=== PATIENT | male | born 1965 | race Caucasian/White ===

== ENCOUNTER 2018-03-18 21:46 | Emergency (ER) | payer OTHER | END 2018-03-18 22:10 | disposition home or self-care (01) | LOC: MADERS 21:46 | DX: R56.9 Unspecified convulsions (principal); F17.210 Nicotine dependence, cigarettes, uncomplicated; F41.9 Anxiety disorder, unspecified; Z79.899 Other long term (current) drug therapy | CPT/HCPCS: 99283 ==

== ENCOUNTER 2018-11-01 15:03 | Emergency (ER) | payer SELFPAY ==
[2018-11-01] MEDS ORDERED: predniSONE 20 MG TAB ONE (15:43)
== END 2018-11-01 15:50 | disposition home or self-care (01) ==
LOC: MADERS 15:03
DX: T63.441A Toxic effect of venom of bees, accidental (unintentional), initial encounter (principal); F17.210 Nicotine dependence, cigarettes, uncomplicated
CPT/HCPCS: 99283; J7512

== ENCOUNTER 2019-12-14 12:13 | Emergency (ER) | payer SELFPAY ==
[2019-12-14] MEDS ORDERED: Cephalexin 500 MG CAP ONE (13:03)
[2019-12-14] MEDS ORDERED: Dexamethasone 4 MG TAB ONE (13:03)
== END 2019-12-14 13:08 | disposition home or self-care (01) ==
LOC: MADERS 12:13
DX: T63.461A Toxic effect of venom of wasps, accidental (unintentional), initial encounter (principal); L03.114 Cellulitis of left upper limb; F17.210 Nicotine dependence, cigarettes, uncomplicated
CPT/HCPCS: 99282; J8540

== ENCOUNTER 2020-02-02 21:46 | Emergency (ER) | payer SELFPAY ==
[2020-02-02 22:10] LABS: #Basophils 0.1 thou/uL (0.0-0.2); #Eosinphils 0.3 thou/uL (0.0-0.7); #Lymphocytes 1.8 thou/uL (1.20-3.40); #Monocytes 0.5 thou/uL (0.11-0.59); #Neutrophils 4.3 thou/uL (1.40-6.50); %Basophils 1.8 % (0.0-1.0); %Eosinophils 4.4 % (0.0-10.0); %Lymphocytes 25.6 % (21.0-51.0); %Monocytes 7.2 % (0.0-10.0); %Neutrophils 61.1 % (42.0-75.0); Hemoglobin 14.9 g/dL (14.0-18.0); Mean Corpuscular HGB CONC 34.8 g/dL (32.0-36.0); Mean Corpuscular Hemoglobin 32.5 pg (27.0-31.0); Mean Corpuscular Volume 93.4 fL (78.0-98.0); Mean Platelet Volume 7.4 fL (7.4-10.4); Platelet Count 251 thou/uL (130-400); RBC Distribution Width 11.4 % (11.5-14.5); Red Blood Cell (RBC) Count 4.58 mill/uL (4.70-6.10)
[2020-02-02 22:34] LABS: ALT (SGPT) 60 U/L (8-55); AST (SGOT) 30 U/L (5-34); Albumin 3.9 g/dL (3.5-5.0); Alkaline Phosphatase 71 U/L (40-110); Anion Gap 16 mmol/L (10-20); BUN (Urea Nitrogen) 13 mg/dL (8.4-25.7); Bilirubin, Total 0.6 mg/dL (0.2-1.2); Calc. Creatinine Clearance 0 mL/min (70-130); Calcium 8.4 mg/dL (7.8-10.44); Carbon Dioxide 20 mmol/L (22-29); Chloride 102 mmol/L (98-107); Estimated GFR-MDRD Greater than 90; Globulin 2.7 g/dL (2.4-3.5); Glucose 92 mg/dL (70-105); Potassium 3.4 mmol/L (3.5-5.1); Protein, Total 6.6 g/dL (6.0-8.3); Sodium 135 mmol/L (136-145)
[2020-02-02 22:42] LABS: Amphetamine Not Detected (NotDetected); Barbiturates Screen Not Detected (NotDetected); Benzodiazepine Screen Not Detected (NotDetected); Cocaine Metabolite Screen Not Detected (NotDetected); Methadone Not Detected (NotDetected); Methamphetamine Not Detected (NotDetected); Opiate Screen Not Detected (NotDetected); Oxycodone Screen Not Detected (NotDetected); Phencyclidine (PCP) Not Detected (NotDetected); THC/Cannabinoid Screen Detected (NotDetected); Tricyclic Screen Not Detected (NotDetected)
[2020-02-02 22:43] LABS: Medtox Control Line Valid? VALID (VALID)
[2020-02-02] MEDS ORDERED: Potassium Chloride 20 MEQ TAB ONE (22:50)
== END 2020-02-02 22:59 | disposition home or self-care (01) ==
LOC: MADERS 21:46
DX: R56.9 Unspecified convulsions (principal); F10.10 Alcohol abuse, uncomplicated; E87.6 Hypokalemia; F12.10 Cannabis abuse, uncomplicated; G89.29 Other chronic pain; M19.90 Unspecified osteoarthritis, unspecified site; Z86.73 Personal history of transient ischemic attack (TIA), and cerebral infarction without residual deficits; F17.290 Nicotine dependence, other tobacco product, uncomplicated
CPT/HCPCS: 36415; 51701; 80053; 80306; 83605; 85025

== ENCOUNTER 2022-06-13 11:02 | Emergency (ER) | payer SELFPAY ==
[~2022-06-13 11:02] MED LIST: Iopamidol 370 76% 100 ML VIAL ONE
[2022-06-13] MEDS ORDERED: Morphine 4 MG/ML VIAL ONE ×2 (11:26→13:18)
[2022-06-13] MEDS ORDERED: Dicyclomine 20 MG/2 ML VIAL ONE (11:27)
[2022-06-13] MEDS ORDERED: Sodium Chloride 0.9% 1,000 ML ONE (11:27)
[2022-06-13] MEDS ORDERED: Ondansetron PF 4 MG/2 ML Vial ONE (11:27)
[2022-06-13 12:00] LABS: #Basophils 0.1 thou/uL (0.0-0.2); #Eosinphils 0.5 thou/uL (0.0-0.7); #Lymphocytes 1.2 thou/uL (1.20-3.40); #Monocytes 0.5 thou/uL (0.11-0.59); #Neutrophils 5.4 thou/uL (1.40-6.50); %Basophils 1.9 % (0.0-1.0); %Eosinophils 6.8 % (0.0-10.0); %Lymphocytes 15.2 % (21.0-51.0); %Monocytes 6.1 % (0.0-10.0); %Neutrophils 70.1 % (42.0-75.0); Hemoglobin 15.3 g/dL (14.0-18.0); Mean Corpuscular HGB CONC 34.7 g/dL (32.0-36.0); Mean Corpuscular Hemoglobin 32.5 pg (27.0-31.0); Mean Corpuscular Volume 93.6 fl (78.0-98.0); Mean Platelet Volume 6.9 fL (7.4-10.4); Platelet Count 257 10x3/uL (130-400); Red Blood Cell (RBC) Count 4.73 mill/uL (4.70-6.10); White Blood Cell (WBC) Count 7.7 10x3/uL (4.8-10.8)
[2022-06-13 12:15] LABS: ALT (SGPT) 61 U/L (8-55); AST (SGOT) 35 U/L (5-34); Alkaline Phosphatase 71 U/L (40-110); Anion Gap 12 mmol/L (10-20); BUN (Urea Nitrogen) 12 mg/dL (8.4-25.7); Bilirubin, Total 0.7 mg/dL (0.2-1.2); Calc. Creatinine Clearance 0 mL/min (70-130); Calcium 8.9 mg/dL (7.8-10.44); Carbon Dioxide 21 mmol/L (22-29); Chloride 105 mmol/L (98-107); Estimated GFR 102; Globulin 2.7 g/dL (2.4-3.5); Glucose 107 mg/dL (70-105); Lipase 56 U/L (8-78); Potassium 4.3 mmol/L (3.5-5.1); Protein, Total 6.7 g/dL (6.0-8.3); Sodium 134 mmol/L (136-145)
[2022-06-13 13:21] LABS: Bilirubin Negative (Negative); Blood, Urine Negative (Negative); Clarity Clear (Clear); Glucose, Urine (Dipstick) Negative (Negative); Ketone, Urine Negative (Negative); Leukocyte Negative (Negative); Nitrite Negative (Negative); Protein, Urine (Dipstick) Negative (Neg-Trace); Urobilinogen 0.2 mg/dL (Less than 2); pH, Urine 5.5 (5.0-9.0)
[2022-06-13] MEDS ORDERED: cefTRIAXone\\ROCEPHIN 2 GM VIAL ONE (13:33)
[2022-06-13] MEDS ORDERED: Ketorolac Tromethamine 30 MG/ML VIAL ONE (13:33)
[2022-06-13] MEDS ORDERED: Lidocaine 1% (PF) 30 ML VIAL ONE (13:34)
== END 2022-06-13 14:25 | disposition home or self-care (01) ==
LOC: MADERS 11:02
DX: K52.9 Noninfective gastroenteritis and colitis, unspecified (principal); G40.409 Other generalized epilepsy and epileptic syndromes, not intractable, without status epilepticus; F17.210 Nicotine dependence, cigarettes, uncomplicated; M41.9 Scoliosis, unspecified; Z86.73 Personal history of transient ischemic attack (TIA), and cerebral infarction without residual deficits; Z79.899 Other long term (current) drug therapy
CPT/HCPCS: 36415; 74177; 80053; 81003; 83690; 85025; 96361; 96365; 96372; 96375; 96376; J0696; J1885; J2001; J2270; J2405; J7050; Q9967

== ENCOUNTER 2022-12-15 11:28 | Emergency (ER) | payer SELFPAY ==
[2022-12-15] MEDS ORDERED: Ondansetron PF 4 MG/2 ML Vial ONE (12:19)
[2022-12-15] MEDS ORDERED: Morphine 4 MG/ML VIAL ONE ×2 (12:19→15:55)
[2022-12-15] MEDS ORDERED: Sodium Chloride 0.9% 1,000 ML ONE (12:19)
[2022-12-15 12:22] LABS: #Basophils 0.1 thou/uL (0.0-0.2); #Eosinphils 0.3 thou/uL (0.0-0.7); #Lymphocytes 1.3 thou/uL (1.20-3.40); #Monocytes 0.4 thou/uL (0.11-0.59); %Basophils 1.8 % (0.0-1.0); %Eosinophils 7.1 % (0.0-10.0); %Lymphocytes 32.5 % (21.0-51.0); %Monocytes 9.4 % (0.0-10.0); %Neutrophils 49.2 % (42.0-75.0); Hematocrit 40.5 % (42.0-52.0); Hemoglobin 13.9 g/dL (14.0-18.0); Mean Corpuscular HGB CONC 34.3 g/dL (32.0-36.0); Mean Corpuscular Hemoglobin 32.9 pg (27.0-31.0); Mean Platelet Volume 8.2 fL (7.4-10.4); Platelet Count 263 10x3/uL (130-400); RBC Distribution Width 11.3 % (11.5-14.5); Red Blood Cell (RBC) Count 4.22 mill/uL (4.70-6.10); White Blood Cell (WBC) Count 4.1 10x3/uL (4.8-10.8)
[2022-12-15 12:40] LABS: ALT (SGPT) 102 U/L (8-55); AST (SGOT) 58 U/L (5-34); Albumin 4.3 g/dL (3.5-5.0); Alkaline Phosphatase 80 U/L (40-110); Anion Gap 14 mmol/L (10-20); BUN (Urea Nitrogen) 15 mg/dL (8.4-25.7); Bilirubin, Total 0.6 mg/dL (0.2-1.2); Calc. Creatinine Clearance 0 mL/min (70-130); Calcium 9.8 mg/dL (7.8-10.44); Carbon Dioxide 24 mmol/L (22-29); Chloride 103 mmol/L (98-107); Estimated GFR 86; Glucose 102 mg/dL (70-105); Lipase 57 U/L (8-78); Potassium 5.3 mmol/L (3.5-5.1); Protein, Total 7.3 g/dL (6.0-8.3); Sodium 136 mmol/L (136-145)
[2022-12-15] MEDS ORDERED: Dicyclomine 20 MG/2 ML VIAL ONE (13:58)
[2022-12-15] MEDS ORDERED: Pantoprazole 40 MG VIAL ONE (16:44)
== END 2022-12-15 18:28 | disposition short-term general hospital (02) ==
LOC: EDBD → MADERS 11:28
DX: R10.84 Generalized abdominal pain (principal); R74.01 Elevation of levels of liver transaminase levels; G40.409 Other generalized epilepsy and epileptic syndromes, not intractable, without status epilepticus; F17.210 Nicotine dependence, cigarettes, uncomplicated; Z79.899 Other long term (current) drug therapy
CPT/HCPCS: 74177; 80053; 83605; 83690; 83735; 85025; 93005; 96361; 96372; 96374; 96375; 96376; C9113; J2270; J2405; J7050; Q9967

== ENCOUNTER 2024-03-20 12:46 | Emergency (ER) | payer OTHER ==
[2024-03-20 14:43] LABS: #Basophils 0.1 thou/uL (0.0-0.2); #Eosinophils 0.3 thou/uL (0.0-0.7); #Lymphocytes 1.3 thou/uL (1.20-3.40); #Monocytes 0.6 thou/uL (0.11-0.59); #Neutrophils 2.8 thou/uL (1.40-6.50); %Basophils 2.5 % (0.0-1.0); %Eosinophils 5.1 % (0.0-10.0); %Lymphocytes 25.3 % (21.0-51.0); %Monocytes 12.6 % (0.0-10.0); %Neutrophils 54.4 % (42.0-75.0); Hemoglobin 14.4 g/dL (14.0-18.0); Mean Corpuscular HGB CONC 32.6 g/dL (32.0-36.0); Mean Corpuscular Hemoglobin 31.7 pg (27.0-31.0); Mean Corpuscular Volume 97.1 fl (78.0-98.0); Mean Platelet Volume 7.6 fL (7.4-10.4); Platelet Count 277 10x3/uL (130-400); RBC Distribution Width 11.2 % (11.5-14.5); Red Blood Cell (RBC) Count 4.53 mill/uL (4.70-6.10); White Blood Cell (WBC) Count 5.1 10x3/uL (4.8-10.8)
[2024-03-20 14:51] LABS: ALT (SGPT) 50 U/L (8-55); AST (SGOT) 28 U/L (5-34); Albumin 4.4 g/dL (3.4-4.8); Alkaline Phosphatase 81 U/L (40-110); Anion Gap 20 mmol/L (10-20); BUN (Urea Nitrogen) 39 mg/dL (8.4-25.7); Bilirubin, Total 0.6 mg/dL (0.2-1.2); Calc. Creatinine Clearance 0 mL/min (70-130); Carbon Dioxide 20 mmol/L (23-31); Chloride 100 mmol/L (98-107); Estimated GFR 36; Globulin 3.6 g/dL (2.4-3.5); Glucose 94 mg/dL (80-115); Potassium 4.8 mmol/L (3.5-5.1); Sodium 135 mmol/L (136-145)
[2024-03-20 14:52] LABS: Troponin I Less than 0.010 ng/mL (< 0.028)
== END 2024-03-20 15:51 | disposition home or self-care (01) ==
LOC: MADERS 12:46
DX: R42 Dizziness and giddiness (principal); R53.81 Other malaise; F17.210 Nicotine dependence, cigarettes, uncomplicated; I10 Essential (primary) hypertension; Z79.82 Long term (current) use of aspirin; Z86.73 Personal history of transient ischemic attack (TIA), and cerebral infarction without residual deficits
CPT/HCPCS: 71046; 80053; 84484; 85025; 85379; 93005; 94760

== ENCOUNTER 2025-01-01 12:44 | Emergency (ER) | payer MEDICAID, OTHER ==
[2025-01-01] MEDS ORDERED: Dexamethasone 4 MG TAB ONE (13:00)
[2025-01-01 14:02] LABS: #Basophils 0.1 thou/uL (0.0-0.2); #Eosinophils 0.3 thou/uL (0.0-0.7); #Lymphocytes 1.8 thou/uL (1.20-3.40); #Monocytes 0.5 thou/uL (0.11-0.59); #Neutrophils 2.2 thou/uL (1.40-6.50); %Basophils 2.0 % (0.0-1.0); %Eosinophils 6.7 % (0.0-10.0); %Lymphocytes 37.3 % (21.0-51.0); %Monocytes 9.6 % (0.0-10.0); %Neutrophils 44.4 % (42.0-75.0); Hematocrit 42.2 % (42.0-52.0); Hemoglobin 14.1 g/dL (14.0-18.0); Mean Corpuscular Hemoglobin 32.3 pg (27.0-31.0); Mean Corpuscular Volume 97.0 fl (78.0-98.0); Platelet Count 271 10x3/uL (130-400); Red Blood Cell (RBC) Count 4.35 mill/uL (4.70-6.10); White Blood Cell (WBC) Count 4.9 10x3/uL (4.8-10.8)
[2025-01-01 14:15] LABS: ALT (SGPT) 72 U/L (Less than 45); AST (SGOT) 55 U/L (11-34); Albumin 4.1 g/dL (3.1-4.5); Alkaline Phosphatase 95 U/L (40-110); Anion Gap 16 mmol/L (10-20); BUN (Urea Nitrogen) 20 mg/dL (8.4-25.7); Bilirubin, Total 0.5 mg/dL (0.3-1.2); Calc. Creatinine Clearance 0 mL/min (70-130); Calcium 8.8 mg/dL (7.8-10.44); Carbon Dioxide 21 mmol/L (23-31); Chloride 106 mmol/L (98-107); Globulin 3.1 g/dL (2.4-3.5); Glucose 179 mg/dL (80-115); Potassium 3.7 mmol/L (3.5-5.1); Sodium 139 mmol/L (136-145)
[2025-01-01 14:37] LABS: Glucose, Urine (Dipstick) 100 mg/dL (Negative); Leukocyte Negative (Negative); Protein, Urine (Dipstick) Trace mg/dL (Neg-Trace); Specific Gravity, Urine Greater/Equal 1.030 (1.005-1.030)
[2025-01-01 14:44] LABS: Bacteria/HPF Rare-Few HPF (None Seen); CAUTI Indications for Culture Dysuria,urgency,freq; Mucous/LPF 3+ LPF (<2+); RBC/HPF None Seen HPF (0-3); WBC/HPF 0-3 HPF (0-3)
[2025-01-01 14:45] LABS: Urine Culture Reflex No No
== END 2025-01-01 14:43 | disposition home or self-care (01) ==
LOC: MADERS 12:44
DX: J44.1 Chronic obstructive pulmonary disease with (acute) exacerbation (principal); H60.92 Unspecified otitis externa, left ear; I10 Essential (primary) hypertension; F17.210 Nicotine dependence, cigarettes, uncomplicated; R56.9 Unspecified convulsions; G23.8 Other specified degenerative diseases of basal ganglia; Z79.51 Long term (current) use of inhaled steroids; Z86.73 Personal history of transient ischemic attack (TIA), and cerebral infarction without residual deficits
CPT/HCPCS: 36415; 71045; 80053; 81001; 85025; J7620; J8540